=== PATIENT | male | born 1965 | race African-American/Black ===

== ENCOUNTER 2019-11-04 21:30 | Emergency (ER) | payer OTHER ==
[~2019-11-04] VITALS: Ht 175.3 cm; Wt 108.9 kg
[2019-11-04] MEDS ORDERED: METFORMIN HCL500 M3 PO (21:35)
[2019-11-04] MEDS ORDERED: ASA81BEC PO (21:36)
[2019-11-04] MEDS ORDERED: TOPROL XL25 MG PO (21:36)
[2019-11-04] MEDS ORDERED: LIPITOR40 MG PO (21:37)
[2019-11-04 22:31] VITALS: BP 154/98
[2019-11-04] MEDS ORDERED: TRAMADOL 50 MG50 MG PO (22:32)
[2019-11-04] MEDS ORDERED: NAPROSYN500 MG PO (22:32)
[2019-11-04] MEDS ORDERED: NORFLEX100 MG PO (22:32)
== END 2019-11-04 22:40 | disposition home or self-care (01) ==
LOC: ER 21:30
DX: S29.012A Strain of muscle and tendon of back wall of thorax, initial encounter (principal); M54.5 Low back pain; I10 Essential (primary) hypertension; E11.9 Type 2 diabetes mellitus without complications; Z95.828 Presence of other vascular implants and grafts; Z79.899 Other long term (current) drug therapy; Z79.82 Long term (current) use of aspirin; V49.49XA Driver injured in collision with other motor vehicles in traffic accident, initial encounter; Y93.I9 Activity, other involving external motion; Y92.488 Other paved roadways as the place of occurrence of the external cause; Y99.8 Other external cause status